=== PATIENT | female | born 1995 | race Caucasian/White ===

== ENCOUNTER 2022-08-04 14:05 | Emergency (ER) | payer SELFPAY ==
[2022-08-04 14:11] VITALS: BP 118/74; PULSE 93; RESP 16; TEMP 36.4; O2SAT 98; BMI 22.8
--- NOTE | 2022-08-04 14:22 | CRLHL7_ITS ---
For Patients: As a result of the Cures Act, medical imaging exams and procedure reports are released immediately into your electronic medical record. You may view this report before your referring provider. If you have questions, please contact your health care provider. INDICATION: Injury. TECHNIQUE: Left finger, 3 views. COMPARISON: None. FINDINGS: Bones: Alignment is normal. No fractures or bone lesions. Joint spaces: Unremarkable. Soft tissues: Mild soft tissue swelling about the proximal interphalangeal joint. IMPRESSION: Soft tissue swelling without underlying fracture or dislocation. Dictated by Vince Christina MD @ 08/04/2022 3:35:57 PM (Electronically Signed)
--- NOTE | 2022-08-04 14:23 | ED.UPPEXIN ---
HPI - Extremity Injury (Upper) General Chief Complaint: Extremity Pain/Injury, Upper Stated Complaint: Finger Injury Time Seen by Provider: 08/04/22 14:11 History of Present Illness HPI narrative: This 26-year-old female comes in with an injury to her left index finger. This occurred last evening when playing volleyball. She had her left index finger jammed. She continued to play but now has decreased range of motion with bruising through to most of the finger. She does not report any other injury. Related Data Home Medications Medication Instructions Recorded Confirmed No Known Home Medications 08/04/22 08/04/22 Allergies Allergy/AdvReac Type Severity Reaction Status Date / Time No Known Drug Allergies Allergy Verified 08/04/22 14:15 Review of Systems Status of ROS: Reports: 10 or more systems reviewed and unremarkable except as noted in History and below Narrative: Constitutional: No fevers, no weight gain or loss. Eyes: No discharge. No vision changes. HENT: No congestion, no sore throat, no ear pain. Cardiovascular: No chest pain, no palpitations. Respiratory: No shortness of breath, no wheezes, no cough. Gastrointestinal: No abdominal pain, no vomiting, no diarrhea. Genitourinary: No dysuria, no hematuria. Musculoskeletal: Left index finger injury as described above. Skin: No rashes, no pruritis. Neurological: No dizziness, weakness, sensory change, speech change. Endo/Heme/Allergies: No bruising or bleeding. No polydipsia. Pysch: no suicidality, no anxiety, no insomnia. All other systems reviewed and are negative. PFSH PFS Social History Smoking Status: Never smoker How often do you have a drink containing alcohol: never How often do you have six or more drinks on one occasion: Never AUDIT-C Alcohol total score: 0 Non-prescribed substance use: denies use Exam Narrative: Exam Narrative: Constitutional: Well-developed, well-nourished, no acute distress. HEENT: Normocephalic, atraumatic. Neck: Normal range of motion. Nontender. Supple. Heart: Intact distal pulses. Lungs: No chest discomfort. No wheezes, rhonchi, or rales. Abdomen: Nontender. Back: Normal range of motion. Extremities: Left index finger has swelling with bruising and associated decreased range of motion. There is no obvious sign of deformity. Skin: Intact. No rash. Warm. No erythema or pallor. Neurologic: No altered sensation. No weakness. Alert and oriented. Psychiatric: No suicidality. No anxiety or depression. No insomnia. Nursing notes and vitals signs are reviewed. Const: Vital Signs, click to edit/add: Vital Signs - 24 hr 08/04/22 14:11 08/04/22 14:49 Temperature 97.6 F Pulse Rate [Right Pulse Oximeter] 93 71 Respiratory Rate 16 Blood Pressure [Ri ght Upper Arm] 118/74 Pulse Oximetry 98 99 Oxygen Delivery Me thod Room Air Room Air Course Vital Signs Vital signs: Initial Vital Signs Temperature 97.6 F 08/04/22 14:11 Temperature Source Temporal Artery Scan 08/04/22 14:11 Pulse Rate 93 08/04/22 14:11 Respiratory Rate 16 08/04/22 14:11 Blood Pressure 118/74 08/04/22 14:11 Blood Pressure Mean 88 08/04/22 14:11 Blood Pressure Position Sitting 08/04/22 14:11 Pulse Oximetry 98 08/04/22 14:11 Oxygen Delivery Method 08/04/22 14:11 Vital Signs Temperature 97.6 F 08/04/22 14:11 Pulse Rate 93 08/04/22 14:11 Respiratory Rate 16 08/04/22 14:11 Blood Pressure 118/74 08/04/22 14:11 Pulse Oximetry 98 08/04/22 14:11 Oxygen Delivery Method 08/04/22 14:11 Temperature 97.6 F 08/04/22 14:11 Pulse Rate 71 08/04/22 14:49 Respiratory Rate 16 08/04/22 14:11 Blood Pressure 118/74 08/04/22 14:11 Pulse Oximetry 99 08/04/22 14:49 Oxygen Delivery Method 08/04/22 14:49 MDM - Extremity Injury (Upper) MDM Narrative Medical decision making narrative: This patient comes in with an injury to her left index finger. X-ray images by my review show no sign of fracture or dislocation. She is encouraged to increase activity as tolerated. I did manisha tape her finger using Coban. Discharge Plan Discharge Clinical Impression: Finger sprain Patient Disposition: Home, Self-Care Condition: Stable Additional Instructions: Increase activity as tolerated. Use [id number] medicines as needed and directed. Follow up with MD or return if worsening. Prescriptions: No Action No Known Home Medications Follow Up/Referrals: Provider,Not a Local [Primary Care Provider] - Stand Alone Forms: [employer] Info Instructions
[2022-08-04 14:49] VITALS: PULSE 71; O2SAT 99
== END 2022-08-04 15:17 | disposition home or self-care (01) ==
PROVIDERS: Emergency Provider Emergency Medicine Emergency Medical Services
DX: S63.611A Unspecified sprain of left index finger, initial encounter (principal); W23.1XXA Caught, crushed, jammed, or pinched between stationary objects, initial encounter; Y93.68 Activity, volleyball (beach) (court); Y92.9 Unspecified place or not applicable
CPT/HCPCS: 73140; 99283